=== PATIENT | female | born 2000 | race African-American/Black ===

== ENCOUNTER 2021-10-25 19:21 | Emergency (ER) | payer MEDICARE ==
[~2021-10-25] VITALS: Ht 170.2 cm; Wt 111.6 kg
[2021-10-25] MEDS ORDERED: PENICILLIN G BENZATHINE LA 1.2 MU TBX IM ONE (19:52)
[2021-10-25] MEDS ORDERED: ACETAMINOPHEN 325 MG TAB PO ONE (20:00)
[2021-10-25] MEDS ORDERED: DEXAMETHASONE SOD PHOS 10 MG/1 ML VIAL IM ONE (20:30)
[2021-10-25 20:48] VITALS: BP 135/78
== END 2021-10-25 20:50 | disposition home or self-care (01) ==
LOC: EDBD 19:21 → ER 20:02
DX: R50.9 Fever, unspecified (principal); J02.9 Acute pharyngitis, unspecified; H92.01 Otalgia, right ear
CPT/HCPCS: 81025; 99282; J0561; J1100